=== PATIENT | female | born 1965 | race Caucasian/White ===

== ENCOUNTER 2018-02-24 19:27 | Emergency (ER) | payer SELFPAY ==
[~2018-02-24] VITALS: Ht 154.9 cm; Wt 62.6 kg
== END 2018-02-24 20:45 | disposition left against medical advice (07) ==
LOC: ER 19:27
DX: E11.65 Type 2 diabetes mellitus with hyperglycemia (principal); I10 Essential (primary) hypertension
CPT/HCPCS: 36415; 82948